=== PATIENT | female | born 1960 | race Caucasian/White ===

== ENCOUNTER → 2022-02-12 | Outpatient (CLI) | payer OTHER ==
[~2022-02-12] MED LIST: XANAX0.25 MG PO
== END | disposition home or self-care (01) ==
LOC: WOUNDCARE 03:45
PROVIDERS: ATTEND Nurse Practitioner Family
DX: T24.302A Burn of third degree of unspecified site of left lower limb, except ankle and foot, initial encounter (principal); T31.0 Burns involving less than 10% of body surface; E66.01 Morbid (severe) obesity due to excess calories; R22.42 Localized swelling, mass and lump, left lower limb; I10 Essential (primary) hypertension; M79.662 Pain in left lower leg; F43.10 Post-traumatic stress disorder, unspecified; F41.9 Anxiety disorder, unspecified; Z86.718 Personal history of other venous thrombosis and embolism; X08.8XXA Exposure to other specified smoke, fire and flames, initial encounter; Y93.89 Activity, other specified; Y92.89 Other specified places as the place of occurrence of the external cause; Y99.8 Other external cause status

== ENCOUNTER → 2022-03-05 | Outpatient (CLI) | payer OTHER | LOC: WOUNDCARE 03:12 | PROVIDERS: ATTEND Nurse Practitioner Family | DX: T24.232D Burn of second degree of left lower leg, subsequent encounter (principal); T31.0 Burns involving less than 10% of body surface; I10 Essential (primary) hypertension; E66.01 Morbid (severe) obesity due to excess calories; M79.662 Pain in left lower leg; F41.9 Anxiety disorder, unspecified; F43.10 Post-traumatic stress disorder, unspecified; Z86.718 Personal history of other venous thrombosis and embolism; Z68.36 Body mass index [BMI] 36.0-36.9, adult; X08.8XXD Exposure to other specified smoke, fire and flames, subsequent encounter ==

== ENCOUNTER 2023-09-05 12:16 | Emergency (ER) | payer SELFPAY ==
[~2023-09-05] VITALS: Ht 167.6 cm; Wt 104.3 kg
[2023-09-05] MEDS ORDERED: PENICILLIN VK500 MG PO (12:57)
== END 2023-09-05 13:24 | disposition home or self-care (01) ==
LOC: ED 12:16
DX: K08.89 Other specified disorders of teeth and supporting structures (principal); F41.9 Anxiety disorder, unspecified; F32.A Depression, unspecified